=== PATIENT | female | born 1985 | race Caucasian/White ===

== ENCOUNTER → 2017-06-06 | Outpatient (CLI) | payer BC ==
[~2017-06-06] MED LIST: BIRTH CONTROL PILL PO; DCS100C PO; HYDR1TAB PO
--- NOTE | 2017-06-06 15:27 | Diagnostic Imaging Report ---
Three views of the right foot. INDICATION: Trauma. FINDINGS: No fracture, dislocation or radiopaque foreign body is seen. Satisfactory joint alignment is seen. IMPRESSION: Unremarkable exam. Dictated by: Dictated on workstation # [id number]
== END ==
LOC: RAD 12:17
PROVIDERS: ATTEND Internal Medicine
DX: S99.921A Unspecified injury of right foot, initial encounter (principal); X58.XXXA Exposure to other specified factors, initial encounter; Y99.8 Other external cause status
CPT/HCPCS: 73630

== ENCOUNTER → 2017-10-08 | Outpatient (CLI) | payer BC ==
--- NOTE | 2017-10-08 20:33 | Diagnostic Imaging Report ---
INDICATION: Right-sided pelvic pain. Does not have regular menstrual cycles. TECHNIQUE: Multiple real time shah scale sonographic images were obtained of the pelvis transabdominally and transvaginally. CORRELATION STUDY: None FINDINGS: UTERUS/ENDOMETRIUM: Uterus measures 6.7 x 3.2 x 3.0 cm. Endometrial thickness is 2 mm. The uterus and endometrium appearing unremarkable. RIGHT OVARY: 1.7 x 2.8 x 3.9 cm. LEFT OVARY: 3.1 x 1.5 x 1.6 cm. The ovaries have an unremarkable appearance. Vascular flow is demonstrated to both ovaries. Trace amount of free fluid within the left adnexa. IMPRESSION: 1. Unremarkable appearing pelvic ultrasound examination. Dictated by: Dictated on workstation # [id number]
== END ==
LOC: RAD 16:32
PROVIDERS: ATTEND Obstetrics & Gynecology
DX: N92.6 Irregular menstruation, unspecified (principal); N94.12 Deep dyspareunia
CPT/HCPCS: 76830; 76856

== ENCOUNTER 2017-11-14 13:50 | Outpatient (CLI) | payer BC ==
[~2017-11-14] VITALS: Ht 162.6 cm; Wt 70.3 kg
== END 2017-11-14 14:05 ==
LOC: PREOP 13:50
PROVIDERS: ATTEND Obstetrics & Gynecology
DX: Z01.818 Encounter for other preprocedural examination (principal); R10.2 Pelvic and perineal pain

== ENCOUNTER 2017-11-22 06:43 | Day surgery (SDC) | payer BC ==
[~2017-11-22] VITALS: Ht 162.6 cm; Wt 70.3 kg
[2017-11-22 07:00] VITALS: BP 130/89
[2017-11-22] MEDS ORDERED: BUPIVACAINE 0.25% 30 ML (SENSORCAINE) VIAL ONE ×2 (07:00→07:13)
[2017-11-22] MEDS ORDERED: fentaNYL INJECTION 100 MCG/2 ML AMP ONE (07:04)
[2017-11-22] MEDS ORDERED: MIDAZOLAM 2 MG/2 ML (VERSED) VIAL ONE (07:04)
[2017-11-22] MEDS ORDERED: DEXAMETHASONE 10 MG/ML (DECADRON) 1 ML VIAL ONE (07:05)
[2017-11-22] MEDS ORDERED: ONDANSETRON 4 MG/2 ML (SDV) Z0FRAN ONE (07:05)
[2017-11-22] MEDS ORDERED: ROCURONIUM 10 MG/ML 5 ML SYRINGE IV ONE (07:05)
[2017-11-22] MEDS ORDERED: LIDOCAINE PF 2% 5 ML (XYLOCAINE) VIAL ONE (07:05)
[2017-11-22] MEDS ORDERED: SEVOFLURANE (ULTANE) 15 ML INHAL SOLN ONE (07:05)
[2017-11-22] MEDS ORDERED: proPOfol 200 MG/20 ML (DIPRIVAN) VIAL IV ONE (07:05)
[2017-11-22] MEDS ORDERED: D5 LR IV SOLUTION 1,000 ML IV SCH (07:16)
--- NOTE | 2017-11-22 07:16 | Progress Note-Pre Operative ---
Pre-Operative Progress Note H&P Reviewed The H&P was reviewed, patient examined and no changes noted. Date Seen by Provider: Nov 22, 2017 Time Seen by Provider: 07:05 Date H&P Reviewed: Nov 22, 2017 Time H&P Reviewed: 07:05 Pre-Operative Diagnosis: High grade cervical dysplasia, right sided pelvic pain. JERAD VILLALBA DO Nov 22, 2017 7:16 am
--- NOTE | 2017-11-22 07:18 | Discharge Inst-Women's Service ---
Discharge Inst-Women's Serv Depart Medication/Instructions New, Converted or Re-Newed RX: RX on Chart Consults/Follow Up Additional Follow Up: Yes Orders/Referrals Dr. Turner in 2-3 weeks Activity Activity: Activity as Tolerated Driving Instructions: You May Drive NO SMOKING: NO SMOKING Nothing Inside Vagina: No Douching, No [place], No Tampons Diet Discharge Diet: No Restrictions Symptoms to Report to : Bleeding Excessive, Pain Increased, Fever Over 101 Degrees F, Vaginal Bleeding Increase, Questions/Concerns For Any Problems or Questions: Contact Your Physician Skin/Wound Care Infection Signs and Symptoms: Increased Redness, Foul Odor of Wound, Increased Drainage, Skin Itchy or Has a Rash, Increased Swelling, Temperature Above 101 F Operative Area Clean and Dry: Keep Incision Clean/Dry Stitches/Larissa/Dermabond: Dermabond, Care of Stitches Bathing Instructions: JERAD Dewitt DO Nov 22, 2017 7:18 am
[2017-11-22] MEDS ORDERED: ACHD5005 PO (07:19)
[2017-11-22] MEDS ORDERED: DOCU-143 PO (07:19)
[2017-11-22] MEDS ORDERED: IBUP-1773 PO (07:19)
[2017-11-22 07:25] LABS: BASOPHILS % (AUTO) 1 % (0-10); EOSINOPHILS # (AUTO) 0.1 10^3/uL (0.0-0.3); EOSINOPHILS % (AUTO) 2 % (0-10); HEMATOCRIT 41 % (35-52); HEMOGLOBIN 14.2 G/DL (11.5-16.0); LYMPHOCYTES # (AUTO) 2.3 X 10^3 (1.0-4.0); LYMPHOCYTES % (AUTO) 46 % (12-44); MEAN CORPUSCULAR HEMOGLOBIN 32 PG (25-34); MEAN CORPUSCULAR HGB CONC 35 G/DL (32-36); MEAN CORPUSCULAR VOLUME 92 FL (80-99); MEAN PLATELET VOLUME 10.8 FL (7.4-10.4); MONOCYTES # (AUTO) 0.5 X 10^3 (0.0-1.0); MONOCYTES % (AUTO) 10 % (0-12); NEUTROPHILS # (AUTO) 2.1 X 10^3 (1.8-7.8); NEUTROPHILS % (AUTO) 42 % (42-75); PLATELET COUNT 277 10^3/uL (130-400); RED BLOOD COUNT 4.45 10^6/uL (4.35-5.85); RED CELL DISTRIBUTION WIDTH 12.8 % (10.0-14.5); WHITE BLOOD COUNT 5.1 10^3/uL (4.3-11.0)
[2017-11-22] MEDS ORDERED: LACTATED RINGERS 1,000 ML IV PRN (07:26)
[2017-11-22] MEDS ORDERED: ONDANSETRON 4 MG/2 ML (SDV) Z0FRAN IVP PRN ×2 (07:30→08:45)
[2017-11-22] MEDS ORDERED: KETOROLAC 30 MG/ML VIAL IVP ONE (07:30)
[2017-11-22] MEDS ORDERED: HYDROcodone/APAP 5 MG/325 MG (LORTAB) TAB PO PRN (07:30)
[2017-11-22] MEDS ORDERED: GLYCOPYRROLATE 0.2 MG/ML (ROBINUL) 2 ML VIAL ONE ×3 (08:07→08:13)
[2017-11-22] MEDS ORDERED: NEOSTIGMINE 1 MG/ML 5 ML SYRINGE ONE (08:12)
[2017-11-22] MEDS: morphine INJ 10 MG/ML 1ML (SYR OR VIAL) IVP PRN ×3 (08:45→08:54)
[2017-11-22] MEDS ORDERED: MEPERIDINE (DEMEROL) INJ 50 MG/ML IVP PRN (08:45)
[2017-11-22] MEDS ORDERED: HYDROmorphone (DILAUDID) 2 MG/ML VIAL IVP PRN (08:45)
[2017-11-22 09:30] VITALS: BP 116/77
--- NOTE | 2017-11-22 09:34 | OPERATIVE REPORT ---
DATE OF SERVICE: PREOPERATIVE DIAGNOSES: 1. A 32-year-old female with high-grade cervical dysplasia. 2. Chronic right-sided pelvic pain. POSTOPERATIVE DIAGNOSES: 1. A 32-year-old female with high-grade cervical dysplasia. 2. Chronic right-sided pelvic pain. PROCEDURE: Loop conization of the cervix with diagnostic laparoscopy. SURGEON: Jerad Villalba DO. ECHO VASCULAR TECHNOLOGIST: JOSE JUAN Hammonds. ANESTHESIA: General endotracheal. ESTIMATED BLOOD LOSS: Minimal. URINE OUTPUT: 150 clear urine at the end of the procedure. FLUIDS: 1200 of Lactated ringer solution. FINDINGS: A grossly normal appearing cervix. Normal vaginal mucosa and external female genitalia. Normal appearing uterus, on laparoscopic evaluation, bilateral normal appearing fallopian tubes and ovaries, normal peritoneum of the posterior cul-de-sac, ovarian fossa, vesicouterine peritoneum. A normal appearing appendix and normal appearing upper abdomen. SPECIMEN SENT: Cone biopsy of the cervix. INDICATIONS FOR PROCEDURE: This 32-year-old female is a patient well-established in my office and had been seen for this ongoing right-sided pelvic pain. Pelvic ultrasound and infectious testing did not lend any help in helping us to find out what this pain was due to. The patient during this time frame was also undergoing her annual exam and Pap smear, which showed low-grade lesion with HPV positive high risk detected. Her colposcopic evaluation and biopsy revealed a high-grade lesion. Due to the discordance between the two, I discussed with the patient performing a conization of the cervix. Also because she was considering having a laparoscopy done anyway due to the significant amount of pain, she asked if she could have the cone done under anesthesia at the same time. I was agreeable to do this. Risk of the procedure itself was discussed with the patient in detail, both of the cone biopsy of the laparoscopy. We discussed risk of bleeding, infection, damaging surrounding structures including, but not limited to the vagina, bladder, ureter, kidneys and damage to the bowel. We discussed loss of fertility and damage to the fallopian tubes and postoperative recovery timeframe. We discussed postoperative hematoma formation, postoperative thromboembolic events and even . After everything was discussed with the patient, consent was obtained in the preoperative area and the patient was taken to the operating room. OPERATIVE REPORT IN DETAIL: Once in the operating room, general anesthesia was found to be adequate. She was placed in the dorsal lithotomy position, prepped and draped in normal sterile fashion. Porras catheter was placed using a sterile technique. An insulated speculum was placed in the patient's vagina, which upon opening allows me to visualize the cervix. I grasped the cervix at the 12 o'clock position using an insulated tenaculum and performed paracervical block at 3 and 9 o'clock positions on the cervix using 0.25% Marcaine, 5 mL are injected at each site. Care was taken to aspirate before injecting after which I stained the cervix using Lugol solution to identify the transformation zone and the extent of my loop biopsy. I then performed a conization using a loop electrocautery device. Two separate specimens were taken. On my first excision, I did not get a clear posterior margin so that is why there was a second specimen. The biopsy margins were then made hemostatic using a ball cautery. I then gently sounded the uterine cavity and depth was found to be 7 cm. I then gently dilate the cervix using Shu dilators to allow placement of my Kronner uterine manipulator. Once this was in place and the balloon was deployed, I removed all other instruments from the patient's vagina including the speculum and take my attention to the abdomen after a change of gloves was performed. Supraumbilically through a previously existing incision, I infiltrated the skin using 0.25% Marcaine and make a 5 mm incision using the knife and introduced a Veress needle through this incision until intraperitoneal placement was confirmed using saline drop test. I then proceeded with insufflation using CO2 gas and opening pressure of 5 mmHg was noted. I proceeded to a max pressure of 15 mmHg, at which point I removed the Veress needle and introduced a 5 mm blunt trocar. Once this was in place, I was able to confirm intraperitoneal placement using the laparoscope. I had the patient placed in steep Trendelenburg and I was able to visualize all of my findings as documented above and I take imaging of these as well to discuss with the patient postoperatively. I placed a second trocar suprapubically in a similar fashion in order to retract adequate structures to visualize all the peritoneal anatomy. This was placed by in similar fashion infiltrating the skin using 0.25% Marcaine. A 5 mm incision was made and a 5 mm trocar was placed through this incision under direct visualization of the laparoscope. Once this was in place, I was able to complete the procedure as described by evaluating all the pelvic anatomy and the upper abdominal anatomy and the appendix. After this was all done and there was no abnormality found or anything to do operatively, I then released insufflation and removed the instruments. After the trocars were removed, the skin was then reapproximated using Dermabond and bandage were placed over this. I then took my attention back to the pelvis where I removed the Kronner uterine manipulator and I was able to visualize the biopsy surface again. There is some slight bleeding noted after removal of the Kronner so I did make this hemostatic using ball cautery once again. The Porras catheter was removed at that point and all other instruments were removed from the patient's vagina. The patient tolerated the procedure well and was sent to the recovery in stable condition. Lap and sponge counts were correct at the end of the procedure. Instrument counts correct as well. Job ID: [id number] DocumentID: [id number] Dictated Date: 11/22/2017 09:06:00 Product Development Actuary Date: 11/22/2017 09:33:41 Dictated By: JERAD VILLALBA DO
[2017-11-22 10:00] VITALS: BP_SYST 112; BP_SYST 114; BP_DIAS 78; BP_DIAS 81
--- NOTE | 2017-11-22 11:39 | Anesthesia-General Post-Op ---
General Patient Condition Mental Status/LOC: Same as Preop Cardiovascular: Satisfactory Nausea/Vomiting: Absent Respiratory: Satisfactory Pain: Controlled Complications: Absent Post Op Complications Complications None Follow Up Care/Instructions Patient Instructions None needed. Anesthesia/Patient Condition Patient Condition Patient is doing well, no complaints, stable vital signs, no apparent adverse anesthesia problems. No complications reported per nursing. D/C home per [facility] [place]: Yes TWILA LOPEZ CRNA Nov 22, 2017 11:39
== END 2017-11-22 10:45 | disposition home or self-care (01) ==
LOC: SDC 06:43
PROVIDERS: ATTEND Obstetrics & Gynecology
DX: N87.1 Moderate cervical dysplasia (principal); R10.2 Pelvic and perineal pain
CPT/HCPCS: 36415; 84703; 85025; 86850; 86900; 86901; 87081

== ENCOUNTER → 2017-12-14 | Outpatient (CLI) | payer BC ==
[~2017-12-14] MED LIST changes: +ACHD5005 PO; +DOCU-143 PO; +IBUP-1773 PO
--- NOTE | 2017-12-14 12:33 | Diagnostic Imaging Report ---
INDICATION: Pubic pain radiating to the right pelvis. TIME OF EXAM: 10:56 AM FINDINGS: A single AP view of the pelvis was obtained. Femoral acetabular alignment is normal. The joint spaces are well-maintained. Femoral heads and necks are intact. Rami are intact. SI joints and symphysis are unremarkable. No fractures are seen. IMPRESSION: No acute bony abnormality is detected. Dictated by: Dictated on workstation # [id number]
== END ==
LOC: RAD 10:21
PROVIDERS: ATTEND Internal Medicine
DX: M86.9 Osteomyelitis, unspecified (principal)
CPT/HCPCS: 72170

== ENCOUNTER → 2019-04-07 | Outpatient (CLI) | payer BC ==
--- NOTE | 2019-04-07 08:52 | Diagnostic Imaging Report ---
PROCEDURE: CT head without contrast. TECHNIQUE: Multiple contiguous axial images were obtained through the brain without the use of intravenous contrast. Auto Exposure Controls were utilized during the CT exam to meet ALARA standards for radiation dose reduction. INDICATION: Anemia as well as neuropathy and myopathy. COMPARISON: No prior studies are available for comparison. FINDINGS: The ventricles and sulci are within normal limits. No sulcal effacement or midline shift is identified. No acute intra-axial or extra-axial hemorrhage is detected. Cisterns are patent. Visualized paranasal sinuses are clear. IMPRESSION: No acute intracranial process is detected. Dictated by: Dictated on workstation # [id number]
== END ==
LOC: RAD 08:10
PROVIDERS: ATTEND Internal Medicine
DX: G37.9 Demyelinating disease of central nervous system, unspecified (principal); G72.9 Myopathy, unspecified; G62.9 Polyneuropathy, unspecified; D64.9 Anemia, unspecified
CPT/HCPCS: 70450

== ENCOUNTER → 2021-04-08 | Outpatient (CLI) | payer BC ==
--- NOTE | 2021-04-08 15:00 | Diagnostic Imaging Report ---
PROCEDURE: Pelvic comp/transvaginal sonogram. TECHNIQUE: Complete transabdominal and transvaginal pelvic ultrasound was performed. In addition, limited pelvic Doppler was performed. INDICATION: Irregular cycles and abnormal uterine bleeding. FINDINGS: Uterus measures 6.3 x 3.0 x 3.6 cm. Endometrium is 4 mm in thickness. No myometrial mass is detected. Right ovary measures 3.2 x 1.3 x 2.3 cm and the left ovary measures 3.4 x 1.6 x 2.9 cm. Left ovary does contain a 2.4 cm cyst. There is blood flow to both ovaries. No free fluid is seen. IMPRESSION: 2.4 cm left ovarian cyst. The study is otherwise unremarkable. Dictated by: Dictated on workstation # [id number]
== END ==
LOC: RAD 12:00
PROVIDERS: ATTEND Obstetrics & Gynecology
DX: N83.202 Unspecified ovarian cyst, left side (principal)
CPT/HCPCS: 76830; 76856

== ENCOUNTER → 2022-11-13 | Outpatient (CLI) | payer BC ==
--- NOTE | 2022-11-13 09:14 | Diagnostic Imaging Report ---
PROCEDURE: US left lower extremity venous. TECHNIQUE: Multiple real-time grayscale images were obtained over the left lower extremity in various projections. Additional duplex Doppler and color Doppler images were also obtained. INDICATION: Left leg varicose veins. There is no evidence of left lower extremity DVT. Left lower extremity deep venous system shows normal compressibility with normal response to augmentation and Valsalva. No fluid collection or mass is detected. No definite varicosities are seen. IMPRESSION: No evidence of left lower extremity DVT. Dictated by: Dictated on workstation # [id number]
== END ==
LOC: RAD 08:00
PROVIDERS: ATTEND Nurse Practitioner Family
DX: I83.92 Asymptomatic varicose veins of left lower extremity (principal)